=== PATIENT | male | born 1965 | race Caucasian/White ===

== ENCOUNTER 2019-07-13 18:18 | Emergency (ER) | payer OTHER ==
[~2019-07-13] VITALS: Ht 172.7 cm; Wt 99.8 kg
[2019-07-13 18:59] VITALS: BP 158/79
[2019-07-13] MEDS ORDERED: DEXAMETHASONE 4 MG TABLET PO STA (19:35)
[2019-07-13] MEDS ORDERED: IPRATRPIUM/ALBUTEROL 0.5/2.5MG 3 ML NEBU. NEB ONE (19:45)
--- NOTE | 2019-07-13 19:48 | PHYS DOC ---
Past Medical History Past Medical History: No Pertinent History (MAVIS LOZANO APRN) Past Surgical History: Other Additional Past Surgical Histo: "SINUS SURGERY" (MAVIS LOZANO APRN) Alcohol Use: None Drug Use: None (MAVIS LOZANO APRN) Attending Signature I have participated in the care of this patient and I have reviewed and agree with all pertinent clinical information above including history, exam, and recommendations. (MARIE COLE MD) Adult General Chief Complaint Chief Complaint: COUGH HPI HPI Patient is a 54 year old male who presents with sinus pressure, runny nose, cough, headache this been ongoing for last 2 days. He states his daughter recently had pneumonia. The patient's been using ibuprofen, Tylenol, bqvb-vds-eqlveff medicines associated not working. (MAVIS LOZANO APRN) Review of Systems Review of Systems Constitutional: Denies fever or chills and body aches. Eyes: Denies change in visual acuity, redness, or eye pain [] HENT: Reports nasal congestion, and runny nose. Respiratory: Reports cough. Denies shortness of breath. Cardiovascular: No additional information not addressed in HPI [] Neurologic: Reports headache, denies focal weakness or sensory changes [] Complete systems were reviewed and found to be within normal limits, except as documented in this note. (MAVIS LOZANO APRN) Current Medications Current Medications Current Medications Medications (Trade) Dose Ordered Sig/[place] Start Time Stop Time Status Last Admin Dose Admin Albuterol/ Ipratropium (Duoneb) 3 ml 1X ONCE 07/13/19 19:45 07/13/19 19:46 DC 07/13/19 19:49 3 ML Dexamethasone (Decadron) 10 mg 1X STAT 07/13/19 19:35 07/13/19 19:40 DC 07/13/19 19:57 10 MG (MARIE COLE MD) Allergies Allergies Allergies Coded Allergies Type Severity Reaction Last Updated Verified sulfamethoxazole Allergy Intermediate 07/13/19 Yes trimethoprim Allergy Intermediate 07/13/19 Yes (MARIE COLE MD) Physical Exam Physical Exam Constitutional: Well developed, well nourished, no acute distress, non-toxic appearance. [] HENT: Normocephalic, atraumatic, bilateral external ears normal, bilateral tympanic membranes are pearly figueroa, oropharynx moist, no oral exudates, nose turbinates are inflamed. Eyes: PERRLA, EOMI, conjunctiva normal, no discharge. [] Neck: Normal range of motion, no tenderness, supple, no stridor. [] Cardiovascular:Heart rate regular rhythm, no murmur [] Lungs & Thorax: Bilateral breath sounds have diffuse rhonchi and wheezing. Skin: Warm, dry, no erythema, no rash. [] Neurologic: Alert and oriented X 3, normal motor function, normal sensory function, no focal deficits noted. [] Psychologic: Affect normal, judgement normal, mood normal. [] (MAVIS LOZANO APRN) Current Patient Data Vital Signs Vital Signs Date Time Temp Pulse Resp B/P (MAP) Pulse Ox O2 Delivery O2 Flow Rate FiO2 07/13/19 19:50 99 Room Air 07/13/19 18:59 97.8 90 16 158/79 (105) 97.8 (MARIE COLE MD) EKG EKG [] (MAVIS LOZANO APRN) Radiology/Procedures Radiology/Procedures [] (MAVIS LOZANO APRN) Course & Med Decision Making Course & Med Decision Making Pertinent Labs and Imaging studies reviewed. (See chart for details) Will give Duoneb, Decadron, and get Chest x-ray. X-ray is unremarkable. Will d/c home on Medrol dose pack and inhaler. (MAVIS LOZANO APRN) Dragon Disclaimer Dragon Disclaimer This electronic medical record was generated, in whole or in part, using a voice recognition dictation system. (MAVIS LOZANO APRN) Departure Departure Impression: Primary Impression: Bronchitis with acute wheezing Disposition: HOME, SELF-CARE Condition: STABLE Referrals: ANA NIEVES (PCP) Patient Instructions: Acute Bronchitis Additional Instructions: Thank you for visiting [facility]. We appreciate you trusting us with your care. If any additional problems come up don't hesitate to return to visit us. Please follow up with your primary care provider so they can plan additional care if needed and know about the problem that you had. If symptoms worsen come back to the Emergency Department. Any concerning symptoms that start such as chest pain, shortness of air, weakness or numbness on one side of the body, running high fevers or any other concerning symptoms return to the ER. Please fill your medications at any pharmacy and follow the prescription instructions. Scripts Methylprednisolone (MEDROL) 4 Mg Tab.ds.pk 1 PKG PO UD, #1 PKG Prov: MAVIS LOZANO APRN 07/13/19 Albuterol Sulfate (PROAIR HFA INHALER) 8.5 Gm Hfa.aer.ad 2 PUFF IH PRN Q4-6HRS PRN for wheezing for 21 Days, #1 INHALER 0 Refills Prov: MAVIS LOZANO APRN 07/13/19 MAVIS LOZANO APRN Jul 13, 2019 19:47 MARIE COLE MD Jul 14, 2019 00:25
[2019-07-13] MEDS ORDERED: ALBU2.5V8 IH (20:04)
[2019-07-13] MEDS ORDERED: METH4TAB2 PO (20:05)
--- NOTE | 2019-07-13 20:49 | RAD ---
Study: CHEST PA LATERAL Indication: Cough. Comparison: None. Findings: Plethoric central vascular structures and increased lung markings with subpleural sparing. No lobar consolidation, pleural effusion or pneumothorax. Scattered granulomas. Impression: Plethoric central vascular structures and increased interstitial markings with subpleural sparing collectively suggestive of interstitial edema. No layering effusion. Electronically signed by: BRIAN SCHILLING MD (07/13/2019 8:46 PM) [facility] [place]
== END 2019-07-13 20:10 | disposition home or self-care (01) ==
LOC: ER 18:18
DX: J40 Bronchitis, not specified as acute or chronic (principal); Z98.890 Other specified postprocedural states; Z88.1 Allergy status to other antibiotic agents; Z88.2 Allergy status to sulfonamides
CPT/HCPCS: 71046; 94640; 99284; J7620; J8540